=== PATIENT | female | born 1975 | race Caucasian/White ===

== ENCOUNTER 2018-09-12 07:45 | Day surgery (SDC) | payer BC ==
[2018-09-08 11:27] LABS: BASOPHILS % (AUTO) 0.4 % (0.0-2.0); EOSINOPHILS # (AUTO) 0.1 K/uL (0-0.4); EOSINOPHILS % (AUTO) 0.8 % (0.0-4.0); HEMATOCRIT 28.8 % (36-48); HEMOGLOBIN 8.9 g/dL (12.0-16.0); LYMPHOCYTES % (AUTO) 28.8 % (20.5-51.1); MEAN CORPUSCULAR HEMOGLOBIN 21 pg (27-31); MEAN CORPUSCULAR HGB CONC 31 g/dL (33-37); MEAN CORPUSCULAR VOLUME 67.2 fL (80-94); MONOCYTES # (AUTO) 0.7 K/uL (0.8-1.0); MONOCYTES % (AUTO) 9.7 % (1.7-9.3); NEUTROPHILS # (AUTO) 4.1 K/uL (1.8-7.7); NEUTROPHILS % (AUTO) 60.3 % (42.2-75.2); PLATELET COUNT (AUTO) 301 K/uL (140-450); RED BLOOD CELL COUNT(AUTO) 4.28 MIL/uL (4.20-5.40); RED CELL DISTRIBUTION WIDTH 18.2 % (11.6-13.7); WHITE BLOOD COUNT (AUTO) 6.8 K/uL (4.8-10.8)
[2018-09-08 11:56] LABS: ALBUMIN 3.5 g/dL (3.4-5.0); ANION GAP 13.4 (8-16); CARBON DIOXIDE 25.2 mmol/L (21-32); CREATININE 0.7 mg/dL (0.6-1.3); POTASSIUM 3.6 mmol/L (3.5-5.1)
[2018-09-08 12:10] LABS: TOTAL BILIRUBIN 0.3 mg/dL (0.0-1.0)
[~2018-09-12] VITALS: Ht 165.1 cm; Wt 62.6 kg
[2018-09-12] MEDS ORDERED: BUPIVACAINE-MPF/EPI 0.25% 30 ML VIAL INJ ONE (10:11)
[2018-09-12] MEDS ORDERED: PROPOFOL 200 MG/20 ML VIAL IV ONE (10:30)
[2018-09-12] MEDS ORDERED: SEVOFLURANE 250 ML BTL INH ONE (10:30)
[2018-09-12] MEDS ORDERED: MEPERIDINE 25 MG/ML SYR ONE (10:56)
[2018-09-12] MEDS ORDERED: MIDAZOLAM 2 MG/2 ML VIAL ONE (10:56)
[2018-09-12] MEDS ORDERED: fentaNYL 0.05 MG/ML VIAL ONE (10:56)
[2018-09-12] MEDS ORDERED: MORPHINE SULFATE 2 MG/ML SYR IVP PRN (11:35)
[2018-09-12] MEDS ORDERED: MORPHINE SULFATE 4 MG/ML SYR IV PRN (11:35)
[2018-09-12] MEDS ORDERED: HYDROmorphone 1 MG/ML AMP IVP PRN (11:35)
[2018-09-12] MEDS ORDERED: HYDROcodone/APAP 5/325 MG 1 TAB TAB PO PRN (11:35)
[2018-09-12] MEDS ORDERED: ONDANSETRON 4 MG/2 ML VIAL IV PRN (11:35)
== END 2018-09-12 12:47 | disposition home or self-care (01) ==
LOC: MDS 07:45 → MMU 07:46 → MDS 12:47
PROVIDERS: ATTEND Surgery
DX: D24.1 Benign neoplasm of right breast (principal)
CPT/HCPCS: 19120; 36415; 71045; 76641; 80053; 81025; 85025; 88307; 88313; 88342; J0690; J2175; J2250; J2704; J3010; J3490; J7060; J7120; Q0092